=== PATIENT | female | born 1995 | race Caucasian/White ===

== ENCOUNTER 2018-04-05 20:15 | Emergency (ER) | payer OTHER ==
[~2018-04-05] VITALS: Ht 167.6 cm; Wt 61.2 kg
[2018-04-05 20:27] VITALS: Ht 167.6 cm; Wt 61.2 kg
[2018-04-05 21:15] VITALS: BP 117/76
== END 2018-04-05 21:15 | disposition home or self-care (01) ==
LOC: ED 20:15
DX: H66.91 Otitis media, unspecified, right ear (principal); J06.9 Acute upper respiratory infection, unspecified; R51 Headache

== ENCOUNTER 2018-05-07 23:55 | Emergency (ER) | payer OTHER ==
[~2018-05-07] VITALS: Ht 167.6 cm; Wt 62.6 kg
[2018-05-07 23:59] VITALS: BP 113/56; Ht 167.6 cm; Wt 62.6 kg
== END 2018-05-08 01:27 | disposition home or self-care (01) ==
LOC: ED 23:55
DX: N83.209 Unspecified ovarian cyst, unspecified side (principal)
CPT/HCPCS: J3010

== ENCOUNTER 2018-06-09 07:35 | Emergency (ER) | payer OTHER ==
[~2018-06-09] VITALS: Ht 167.6 cm; Wt 62.6 kg
[2018-06-09 10:23] LABS: BASOPHIL % 0.5 % (0-2); PLATELET COUNT 321 x10^3mcL (130-400); RED CELL DISTRIBUTION WIDTH 13.1 % (11.5-14.5)
[2018-06-09 12:16] LABS: ALBUMIN 3.8 g/dL (3.4-5.0); ALKALINE PHOSPHATASE 68 U/L (46-116); ALT/SGPT 16 U/L (14-59); AST/SGOT 12 U/L (15-37); CALCIUM 8.4 mg/dL (8.5-10.1); CARBON DIOXIDE 26.9 mmol/L (21-32); CHLORIDE SERUM 106 mmol/L (98-107); CREATININE SERUM 0.6 mg/dL (0.6-1.0); GFR1 > 60 mL/min; GLUCOSE SERUM 88 mg/dL (74-106); POTASSIUM SERUM 4.3 mmol/L (3.5-5.1); SODIUM SERUM 141 mmol/L (136-145); TOTAL PROTEIN, SERUM 6.7 g/dL (6.4-8.2)
[2018-06-09 12:31] LABS: C REACTIVE PROTEIN < 0.2 mg/dL (<=0.9)
[2018-06-09 13:20] VITALS: BP 95/45
== END 2018-06-09 13:20 | disposition home or self-care (01) ==
LOC: ED 07:35
PROVIDERS: Emergency Medicine
DX: G43.909 Migraine, unspecified, not intractable, without status migrainosus (principal); G89.29 Other chronic pain; R10.31 Right lower quadrant pain
CPT/HCPCS: J1200; J2765

== ENCOUNTER 2018-06-25 20:40 | Emergency (ER) | payer OTHER ==
[~2018-06-25] VITALS: Ht 167.6 cm; Wt 65.0 kg
[2018-06-25 20:51] VITALS: Ht 167.6 cm; Wt 65.0 kg
[2018-06-25 22:20] VITALS: BP 112/67
== END 2018-06-25 22:20 | disposition home or self-care (01) ==
LOC: ED 20:40
DX: S16.1XXA Strain of muscle, fascia and tendon at neck level, initial encounter (principal); N83.209 Unspecified ovarian cyst, unspecified side; V43.02XA Car driver injured in collision with other type car in nontraffic accident, initial encounter; Y93.I9 Activity, other involving external motion; Y92.481 Parking lot as the place of occurrence of the external cause; Y99.8 Other external cause status

== ENCOUNTER 2018-07-15 17:36 | Emergency (ER) | payer OTHER ==
[~2018-07-15] VITALS: Ht 167.6 cm; Wt 64.1 kg
[2018-07-15 17:38] VITALS: Ht 167.6 cm; Wt 64.1 kg
[2018-07-15 19:30] VITALS: BP 132/78
== END 2018-07-15 19:30 | disposition home or self-care (01) ==
LOC: ED 17:36
DX: S93.402A Sprain of unspecified ligament of left ankle, initial encounter (principal); N83.209 Unspecified ovarian cyst, unspecified side; X50.1XXA Overexertion from prolonged static or awkward postures, initial encounter; Y93.89 Activity, other specified; Y92.89 Other specified places as the place of occurrence of the external cause; Y99.8 Other external cause status
CPT/HCPCS: J1885